=== PATIENT | female | born 2000 | race Caucasian/White ===

== ENCOUNTER 2019-04-17 16:48 | Emergency (ER) | payer OTHER ==
[2019-04-17] MEDS ORDERED: ACETAMINOPHEN 325 MG TAB PO (17:00)
[2019-04-17] MEDS ORDERED: ONDANSETRON 4 MG INJ IV (17:00)
[2019-04-17] MEDS: ONDANSETRON 4 MG INJ IV (17:09)
== END 2019-04-17 19:27 | disposition home or self-care (01) ==
LOC: E/R 16:48
DX: R55 Syncope and collapse (principal)
CPT/HCPCS: 99282; Z7502